=== PATIENT | female | born 1995 | race Two or more races ===

== ENCOUNTER 2017-12-16 19:04 | Emergency (ER) | payer MEDICAID, SELFPAY ==
[2017-12-16 19:06] VITALS: BP 143/95; PULSE 101; RESP 20; TEMP 36.7; O2SAT 99; BMI 27.0
--- NOTE | 2017-12-16 19:44 | CT_ITS ---
STUDY: CT ABDOMEN WITH CONTRAST REASON FOR EXAM: Female, 22 years old. Nausea vomiting diarrhea. Painful urination. RADIATION DOSAGE (If Supplied By Facility): CTDIvol = ( 14.79 ) mGy, DLP = ( 834.13 ) mGycm TECHNIQUE: Transaxial images were obtained post I.V. administration of 100 ml of Isovue 300 contrast, and oral contrast. Sagittal and coronal images were reconstructed. Individualized dose optimization techniques were used for this CT. COMPARISON: None. FINDINGS: Lung bases are clear. Visualized heart is normal. The liver is unremarkable. The gallbladder is unremarkable. The spleen and pancreas are unremarkable. The aorta is normal in caliber. The adrenal glands are normal. The kidneys are unremarkable. No stones or hydronephrosis. No evidence of acute pyelonephritis. Ureters are normal in course and caliber. No ureteral stone. There is no free fluid, free air, or organized collection. No bowel obstruction or inflammatory change. Normal appendix. There is shotty adenopathy in the right lower quadrant. Urinary bladder is unremarkable. Uterus and adnexae are unremarkable. Normal abdominal wall. Normal osseous structures. CT/Abdomen/Pelvis WITH Contrast IMPRESSION: Shotty adenopathy in the right lower quadrant may indicate mesenteric lymphadenitis. The study is otherwise unremarkable. Electronically Signed: Trudy Ngo MD at 22:46 EST Tel , Service support ,
--- NOTE | 2017-12-16 19:47 | ED.DCSUM_ITS ---
- ER Visit Summary Date of Service: 12/16/17 Chief Complaint: Abdominal pain History of Present Illness: The patient is a 22 F presenting with abdominal pain. She states this started on . She started having diarrhea. She has had 2 episodes of diarrhea per day. She denies blood in her stool. She also complains of nausea vomiting x 1 this morning. Denies fever. Today she noted dysuria and urinary urgency, feels similar to previous UTI. She [facility] to the [facility] and they sent her in for further evaluation. Physical Examination: Vitals are stable. Patient is afebrile. Alert no acute distress. HEENT exam is unremarkable. Neck is supple. Lungs are clear and equal bilaterally. Heart is regular rate and rhythm. Abdomen is soft right lower quadrant tenderness with no rebound or guarding Extremities are unremarkable. Skin is warm and dry. Remainder of exam is unremarkable. Emergency Department Course and Treatment: Patient given IV fluids, Zofran. CBC normal except for hemoglobin 10.3. Chemistries unremarkable. Urinalysis shows positive leukocytes, 0 white cells, 5-10 epithelial cells, 2+ bacteria. HCG negative. CT abdomen pelvis shows shotty adenopathy in the right lower quadrant may indicate mesenteric lymphadenitis. The study is otherwise unremarkable. On reevaluation, patient is resting comfortably. Due to her contaminated urine and all of her typical symptoms of UTI she will be put on a course of Macrobid. She is advised to follow-up with the wellness center. Advised return to ED if worsening complaints. Disposition: Discharge home Impression: Diarrhea, UTI This note was generated with [employer] dictation software. It may contain incorrect words, spelling, and punctuation that were not noted in review of the chart prior to signing ED Disposition - Plan for ED Patient: Chief Complaint: General Illness Instructions: ED Diarrhea Viral, ED UTI Cystitis Female Prescriptions: Nitrofurantoin Macrocrystals [Macrobid] 100 mg PO Q12 #10 capsule Referrals: Care Physician,No Primary [Primary Care Provider] -
[2017-12-16] MEDS: 0.9% Normal Saline 1,000 ML 1000 ML IV (20:13)
[2017-12-16] MEDS: Ondansetron 4 MG/2 ML Vial IV (20:13)
[2017-12-16 20:17] LABS: Absolute Lymphocyte Count 1.76 X10^3/ul (0.83-4.51); Absolute Neutrophil Count 4.3 X10^3/uL (2.0-7.7); Basophil# 0.01 X10^3/uL; Basophil% 0.2 % (0-1); Eosinophil# 0.02 X10^3/uL; Eosinophils% 0.3 % (0-5); Hematocrit 30.3 % (37-47); Hemoglobin 10.3 g/dl (12.0-15.0); Lymphocyte # 1.76 X10^3/ul (4.0); Lymphocyte % 26.9 % (19-41); Mean Corpuscular Hgb 29.9 pg (27.0-32.0); Mean Corpuscular Volume 88.1 fL (81-99); Monocyte# 0.44 X10^3/uL; Monocyte% 6.7 % (0-10); Neutrophil % 65.7 % (47-70); POSITIVE COUNT NO; POSITIVE DIFFERENTIAL NO; POSITIVE MORPHOLOGY NO; Platelet Count 180 K/mm3 (150-450); RBC Distribution Width CV 12.5 % (11.6-14.6); RBC Distribution Width SD 40.3 fl (35.1-43.9); Red Blood Count 3.44 M/mm3 (4.2-5.4); White Blood Count 6.5 K/mm3 (4.4-11.0)
[2017-12-16 20:30] LABS: Anion Gap 10 (5-15); BUN 14 mg/dL (7-18); BUN/Creat Ratio 19.7 RATIO (10-20); Calcium,Total 9.1 mg/dL (8.5-10.1); Chloride 106 mmol/L (98-107); Creatinine, Serum 0.71 mg/dL (0.55-1.02); EST Glomerular Filtration Rate 110 mL/min (>60); Est Glom Filt Rate - Afr Amer 134 mL/min (>60); Estimated Creatinine Clearance 108.23 ml/min; Glucose 99 mg/dL (74-106); Sodium Level 136 mmol/L (136-145)
[2017-12-16 20:37] LABS: Pregnancy, Serum, hCG Quali. NEGATIVE Negative (0-9 Nonpreg)
[2017-12-16 20:40] LABS: Mucous, Urine 0 SEEN /hpf (<or=2+); White Blood Cells 0 SEEN /hpf (0-5)
[2017-12-16 20:44] LABS: Color, Urine Yellow (Yellow); Glucose, Dipstick Normal (Normal); Ketone-Dipstick Negative (Negative); Leukocyte Esterase-Dipstick 100 /ul (Negative); Nitrite-Dipstick Negative (Negative); Occult Blood-Urine 25 /ul (Negative); Protein-Dipstick 15 mg/dl (Negative); Urine Bilirubin Dipstick Negative (Negative); Urine Clarity Sl. Cloudy (Clear); Urine Urobilinogen Normal (Normal)
[2017-12-16 20:51] LABS: Bacteria 2+ /hpf (None Seen); Red Blood Cells-Urine 0-5 SEEN /hpf (0-5); Squamous Epithelial Cells - UA 5-10 SEEN /hpf (5-10)
--- NOTE | 2017-12-16 21:10 | NURSING ---
NURSE AT [facility] ASKED IF WE COULD CALL ONCE WE KNOW IF PATIENT WAS STAYING OR BEING DISCHARGED AND WITH UPDATES. [phone]
--- NOTE | 2017-12-16 22:52 | ED.DEP ---
ED Disposition - Plan for ED Patient: Chief Complaint: General Illness Instructions: ED Diarrhea Viral, ED UTI Cystitis Female Prescriptions: Nitrofurantoin Macrocrystals [Macrobid] 100 mg PO Q12 #10 capsule Referrals: Care Physician,No Primary [Primary Care Provider] -
[2017-12-16] MEDS: Nitrofurantoin Macrocrystals 100 MG Capsule PO (23:13)
[2017-12-16 23:14] VITALS: BP 148/96; PULSE 96; RESP 18; O2SAT 96
--- NOTE | 2017-12-16 23:15 | ED.RN ---
PT GIVEN WRITTEN AND VERBAL DISCHARGE INSTRUCTIONS AND HOME GOING PRESCRIPTIONS. PT VERBALIZES UNDERSTANDING AND DENIES ANY FURTHER QUESTIONS. PT IV D/C AND SITE COVERED WITH 2X2 GAUZE DRESSING AND PAPER TAPE. PT AMBULATES OUT OF DEPT. [facility] [place]CT[place] UPDATE.
== END 2017-12-16 23:18 | disposition home or self-care (01) ==
PROVIDERS: Emergency Provider Emergency Medicine
DX: R19.7 Diarrhea, unspecified (principal); N39.0 Urinary tract infection, site not specified; F32.9 Major depressive disorder, single episode, unspecified; F41.9 Anxiety disorder, unspecified; Z72.0 Tobacco use
CPT/HCPCS: 74177; 80048; 81001; 84703; 85025; 96361; 96374; 99283; J7030; Q9967; A4216; J2405